=== PATIENT | female | born 1955 | race Caucasian/White ===

== ENCOUNTER 2019-01-05 09:41 | Emergency (ER) | payer MEDICARE, OTHER ==
[~2019-01-05] VITALS: Ht 165.1 cm; Wt 63.5 kg
[~2019-01-05 09:41] MED LIST: CYCL10 PO; HYDACE5 PO; IBUP800 PO
[2019-01-05 10:28] LABS: BASOPHILS ABSOLUTE AUTO 0.04 K/mm3 (0.00-0.23); BASOPHILS PERCENT AUTO 0 % (0-2); EOSINOPHILS ABSOLUTE AUTO 0.02 K/mm3 (0.00-0.68); EOSINOPHILS PERCENT AUTO 0 % (0-6); Hemoglobin 14.3 g/dL (11.5-16.0); IMMATURE GRAN ABSOLUTE AUTO 0.02 K/mm3 (0.00-0.10); IMMATURE GRAN PERCENT AUTO 0 % (0-1); LYMPHOCYTES ABSOLUTE AUTO 1.17 K/mm3 (0.84-5.20); LYMPHOCYTES PERCENT AUTO 12 % (21-46); MONOCYTES ABSOLUTE AUTO 0.79 K/mm3 (0.16-1.47); MONOCYTES PERCENT AUTO 8 % (4-13); Mean Corpuscular HGB Conc 33.3 g/dL (31.5-36.5); Mean Corpuscular Volume 90 fL (80-100); Mean Platelet Volume 9.3 fL (9.1-12.4); NEUTROPHILS ABSOLUTE AUTO 7.56 K/mm3 (1.96-9.15); NEUTROPHILS PERCENT AUTO 79 % (41-73); Platelet Count 288 K/mm3 (150-400); RDW Coefficient Variation 12.7 % (11.7-14.2); RDW Standard Deviation 42.1 fL (35.1-46.3); Red Blood Cell Count 4.76 M/mm3 (3.80-5.20)
[2019-01-05 10:43] LABS: Alanine Aminotransfer (ALT/SGP 17 U/L (12-78); Albumin, Blood 3.3 g/dL (3.4-5.0); Albumin/Globulin Ratio 0.8 (0.8-1.8); Alk Phos 111 U/L (50-136); Anion Gap 4 mmol/L (6-16); Aspartate Aminotrans (AST/SGOT 18 U/L (12-37); Bilirubin, Total 0.9 mg/dL (0.1-1.0); Blood Urea Nitrogen 16 mg/dL (8-24); CO2, Blood 29 mmol/L (21-32); Calcium, Blood 9.1 mg/dL (8.5-10.1); Chloride, Blood 104 mmol/L (98-108); Creatinine, Blood 0.84 mg/dL (0.40-1.00); Globulin, Blood 4.4 g/dL (2.2-4.0); Glomerular Filtration Rate >60 (60-); Glucose, Blood 88 mg/dL (70-99); Potassium, Blood 4.5 mmol/L (3.5-5.5); Sodium, Blood 137 mmol/L (136-145); Total Protein, Blood 7.7 g/dL (6.4-8.2); Troponin I <0.015 ng/mL (0.000-0.040)
[2019-01-05] MEDS ORDERED: VIBRAMYCIN PO (12:11)
== END 2019-01-05 12:37 | disposition home or self-care (01) ==
LOC: ER 09:41
PROVIDERS: Physician Assistant
DX: J18.9 Pneumonia, unspecified organism (principal); Z88.5 Allergy status to narcotic agent
CPT/HCPCS: 36415; 71046; 71260; 80053; 84484; 85025; 93005; 93010; 96365-59; 99284-25; J0696; Q9967

== ENCOUNTER 2019-04-27 12:41 | Emergency (ER) | payer MEDICARE, SELFPAY ==
[~2019-04-27] VITALS: Ht 167.6 cm; Wt 62.6 kg
[~2019-04-27 12:41] MED LIST changes: +VIBRAMYCIN PO
[2019-04-27 13:13] LABS: BASOPHILS ABSOLUTE AUTO 0.06 K/mm3 (0.00-0.23); BASOPHILS PERCENT AUTO 1 % (0-2); EOSINOPHILS ABSOLUTE AUTO 0.07 K/mm3 (0.00-0.68); EOSINOPHILS PERCENT AUTO 1 % (0-6); Hematocrit 43.4 % (33.0-51.0); Hemoglobin 14.3 g/dL (11.5-16.0); IMMATURE GRAN ABSOLUTE AUTO 0.01 K/mm3 (0.00-0.10); IMMATURE GRAN PERCENT AUTO 0 % (0-1); LYMPHOCYTES PERCENT AUTO 28 % (21-46); MONOCYTES ABSOLUTE AUTO 0.85 K/mm3 (0.16-1.47); MONOCYTES PERCENT AUTO 12 % (4-13); Mean Corpuscular HGB 30.1 pg (26.0-34.0); Mean Corpuscular HGB Conc 32.9 g/dL (31.5-36.5); Mean Corpuscular Volume 91 fL (80-100); NEUTROPHILS ABSOLUTE AUTO 3.94 K/mm3 (1.96-9.15); NEUTROPHILS PERCENT AUTO 58 % (41-73); Platelet Count 237 K/mm3 (150-400); RDW Coefficient Variation 13.7 % (11.7-14.2); RDW Standard Deviation 46.5 fL (35.1-46.3); Red Blood Cell Count 4.75 M/mm3 (3.80-5.20); White Blood Cell Count 6.83 K/mm3 (4.00-11.30)
[2019-04-27 13:39] LABS: Alanine Aminotransfer (ALT/SGP 18 U/L (12-78); Albumin, Blood 3.6 g/dL (3.4-5.0); Albumin/Globulin Ratio 0.8 (0.8-1.8); Alk Phos 82 U/L (50-136); Anion Gap 6 mmol/L (6-16); Aspartate Aminotrans (AST/SGOT 10 U/L (12-37); Bilirubin, Total 0.7 mg/dL (0.1-1.0); Blood Urea Nitrogen 19 mg/dL (8-24); Bun/Creatinine Ratio 30.5 (12.0-20.0); CO2, Blood 27 mmol/L (21-32); Calcium, Blood 9.1 mg/dL (8.5-10.1); Chloride, Blood 110 mmol/L (98-108); Creatinine, Blood 0.62 mg/dL (0.40-1.00); Globulin, Blood 4.3 g/dL (2.2-4.0); Glomerular Filtration Rate >60 (60-); Glucose, Blood 87 mg/dL (70-99); Potassium, Blood 4.2 mmol/L (3.5-5.5); Sodium, Blood 143 mmol/L (136-145); Total Protein, Blood 7.9 g/dL (6.4-8.2); Troponin I <0.015 ng/mL (0.000-0.040)
== END 2019-04-27 14:54 | disposition home or self-care (01) ==
LOC: ER 12:41
PROVIDERS: Physician Assistant
DX: R09.1 Pleurisy (principal); Z88.5 Allergy status to narcotic agent
CPT/HCPCS: 36415; 71046; 80053; 84484; 85025; 85379; 93005; 93010; 99284-25

== ENCOUNTER 2020-01-26 08:46 | Observation (INO) | payer OTHER ==
[~2020-01-26] VITALS: Ht 167.6 cm; Wt 53.0 kg
[2020-01-26 09:46] LABS: BASOPHILS ABSOLUTE AUTO 0.07 K/mm3 (0.00-0.23); BASOPHILS PERCENT AUTO 1 % (0-2); EOSINOPHILS ABSOLUTE AUTO 0.06 K/mm3 (0.00-0.68); EOSINOPHILS PERCENT AUTO 1 % (0-6); Hematocrit 44.6 % (33.0-51.0); IMMATURE GRAN ABSOLUTE AUTO 0.03 K/mm3 (0.00-0.10); IMMATURE GRAN PERCENT AUTO 0 % (0-1); LYMPHOCYTES ABSOLUTE AUTO 1.14 K/mm3 (0.84-5.20); LYMPHOCYTES PERCENT AUTO 13 % (21-46); MONOCYTES ABSOLUTE AUTO 0.64 K/mm3 (0.16-1.47); MONOCYTES PERCENT AUTO 7 % (4-13); Mean Corpuscular HGB 29.4 pg (26.0-34.0); Mean Corpuscular HGB Conc 31.4 g/dL (31.5-36.5); Mean Corpuscular Volume 94 fL (80-100); Mean Platelet Volume 9.5 fL (9.1-12.4); NEUTROPHILS PERCENT AUTO 78 % (41-73); Platelet Count 297 K/mm3 (150-400); RDW Standard Deviation 44.6 fL (35.1-46.3); Red Blood Cell Count 4.77 M/mm3 (3.80-5.20); White Blood Cell Count 8.64 K/mm3 (4.00-11.30)
[2020-01-26 10:06] LABS: Alanine Aminotransfer (ALT/SGP 32 U/L (12-78); Albumin, Blood 3.6 g/dL (3.4-5.0); Albumin/Globulin Ratio 0.9 (0.8-1.8); Alk Phos 92 U/L (50-136); Anion Gap 7 mmol/L (6-16); Aspartate Aminotrans (AST/SGOT 45 U/L (12-37); Bilirubin, Total 0.8 mg/dL (0.1-1.0); Blood Urea Nitrogen 22 mg/dL (8-24); Bun/Creatinine Ratio 28.1 (12.0-20.0); CO2, Blood 27 mmol/L (21-32); Calcium, Blood 9.4 mg/dL (8.5-10.1); Chloride, Blood 107 mmol/L (98-108); Creatinine, Blood 0.78 mg/dL (0.40-1.00); Globulin, Blood 4.1 g/dL (2.2-4.0); Glomerular Filtration Rate >60 (60-); Glucose, Blood 125 mg/dL (70-99); Potassium, Blood 3.8 mmol/L (3.5-5.5); Sodium, Blood 141 mmol/L (136-145); Total Protein, Blood 7.7 g/dL (6.4-8.2)
[2020-01-26 10:15] LABS: Troponin I 0.456 ng/mL (0.000-0.040)
[2020-01-26 11:21] LABS: International Normalized Ratio 1.04; Prothrombin Time Results 11.1 Sec (9.7-11.5)
--- NOTE | 2020-01-26 13:45 | NUR ---
ADMISSION ASSESMENT COMPLETE. PT LYING IN BED VISITING WITH SISTER. BED IN LOWEST POSITION, RAILS UP, CALL LIGHT WITHIN REACH.
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
[2020-01-26 16:46] LABS: Creatine Kinase MB 30.5 ng/mL (0.0-3.6); Creatine Kinase MB Index 12.1 (0.0-4.0)
[2020-01-26 16:48] LABS: Troponin I 3.83 ng/mL (0.000-0.040)
--- NOTE | 2020-01-26 18:25 | NUR ---
SHIFT SUMMARY TROPONIN LAB VALUE CRTICAL AT 3.83. DR MCKENNA NOTIFIED. DUE TO AN INABILITY TO SAFELY SWALLOW THE NECESSARY PO MEDS THE PT IS UNABLE TO GO TO THE HEALTH SOCIAL WORK PROFESSOR. PT CURRENTLY RESTING IN BED WITH A HEPARIN DRIP.
--- NOTE | 2020-01-26 20:12 | NUR ---
CARE ASSUMED REPORT RECEIVED, CARE ASSUMED AT 1900 FROM MEMO GRESHAM. PT SITTING UP IN BED, DECLINES PAIN, DISCOMFORT OR NEEDS. COMMUNICATES NONVERBALLY, WRITING ON NOTEPAD, USING FACIAL EXPRESSIONS AND HAND MOTIONS. VITALS STABLE. PT AGREEABLE TO USE CALL LIGHT FOR NEEDS. REPORT GIVEN TO MEMO RICHTER TO ASSUME CARE AT THIS TIME.
--- NOTE | 2020-01-26 21:20 | NUR ---
t coughing and having difficulty with secretions feeling to full to cough up. Review positioning to facilitae drool. pt cannot thanh left lateral due to nostril plugging up. suggest scopolmine patch. pt also distraugh because no contact with neurologist. will update hosptilist.
[2020-01-27 00:48] LABS: Creatine Kinase MB 21.9 ng/mL (0.0-3.6); Creatine Kinase MB Index 10.3 (0.0-4.0)
[2020-01-27 00:55] LABS: Troponin I 3.26 ng/mL (0.000-0.040)
--- NOTE | 2020-01-27 05:35 | NUR ---
SHIFT SUMMARY ASSUMED CARE OF PT AT 1900. PT IS A/OX4, DENIES N/T IN EXTREMIES, PT CANNOT SPEAK DUE TO PSEUDOBULBAR PALSY, SHE WRITES ON PAPER TO RESPOND. HEART SOUNDS REGULAR, TELE SHOWS SINUS WITH BBB AND PAC @ 67, DENIES CP AT THIS TIME. HEPRIN DRIP CHANGED FROM 13UNITS/HR TO 15UNITS/HR. LUNG SOUNDS DIMINISHED, DENIES SOB. AT AROUND 0900 PT CHOKED ON HER SALIVA, PALLITIVE CARE NURSE SUGGESTED SCOPOLAMINE PATCH, NOTIFIED HOSPITAL WHO STATED IT COULD HAVE SIDE EFFECTS AND FOR THIS TO BE EVALUATED BY DAYSHIFT DOCTOR. NO ACUTE EVENTS DURING THE NIGHT. PT SLEPT MOST OF THE NIGHT. CALL LIGHT IN REACH, BED IN LOWEST POSTION, WILL CONTINUE TO MONITOR UNTIL DAYSHIFT NURSE ARRIVES.
[2020-01-27 08:35] LABS: Creatine Kinase MB 16.8 ng/mL (0.0-3.6); Creatine Kinase MB Index 9.4 (0.0-4.0)
[2020-01-27 08:52] LABS: Troponin I 2.52 ng/mL (0.000-0.040)
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
[2020-01-27] MEDS ORDERED: ASPI300S PR (12:12)
[2020-01-27] MEDS ORDERED: NITR.4SL SL (12:12)
[2020-01-27] MEDS ORDERED: Transderm-Scop1 EACH TD (12:13)
--- NOTE | 2020-01-27 13:31 | NUR ---
PCU DISCHARGE SUMMARY PATIENT AMBULATED TO WHEELCHAIR WITH STEADY GAIT AND LEFT UNIT VIA WHEELCHAIR HOME WITH SISTER. PATIENT UNDERSTOOD NEW MEDICATIONS, FOLLOW UP APPTS AND DISCHARGE INSTRUCTIONS. SISTER ALSO VERBALZIED INSTRUCTIONS OUT IN PARKING LOT. PATIENT LEFT IN NO ACUTE DISTRESS ON ROOM AIR. BELONGS SENT WITH PT.
== END 2020-01-27 13:15 | disposition home or self-care (01) ==
LOC: ER 08:46 → PCU 08:48 → ER 10:55 → PCU 10:55
PROVIDERS: Pharmacist; Physician Assistant; ADMIT Internal Medicine
DX: I21.4 Non-ST elevation (NSTEMI) myocardial infarction (principal); Z88.5 Allergy status to narcotic agent; G12.29 Other motor neuron disease
CPT/HCPCS: 36415; 71045; 80053; 82550; 82553; 84484; 85025; 85610; 85730; 93005; 93010; 96365; 96366; 96375; 96376; 99285-25; G0378; J1644; J2930

== ENCOUNTER 2020-01-30 00:02 | Emergency (ER) | payer OTHER ==
[~2020-01-30] VITALS: Ht 167.6 cm; Wt 54.4 kg
[~2020-01-30 00:02] MED LIST changes: +ASPI300S PR; +NITR.4SL SL; +Transderm-Scop1 EACH TD
[2020-01-30 00:32] LABS: BASOPHILS ABSOLUTE AUTO 0.04 K/mm3 (0.00-0.23); BASOPHILS PERCENT AUTO 0 % (0-2); EOSINOPHILS ABSOLUTE AUTO 0.01 K/mm3 (0.00-0.68); EOSINOPHILS PERCENT AUTO 0 % (0-6); Hematocrit 41.7 % (33.0-51.0); Hemoglobin 13.3 g/dL (11.5-16.0); IMMATURE GRAN ABSOLUTE AUTO 0.03 K/mm3 (0.00-0.10); IMMATURE GRAN PERCENT AUTO 0 % (0-1); LYMPHOCYTES ABSOLUTE AUTO 1.61 K/mm3 (0.84-5.20); LYMPHOCYTES PERCENT AUTO 13 % (21-46); MONOCYTES ABSOLUTE AUTO 1.02 K/mm3 (0.16-1.47); MONOCYTES PERCENT AUTO 8 % (4-13); Mean Corpuscular HGB 29.4 pg (26.0-34.0); Mean Corpuscular HGB Conc 31.9 g/dL (31.5-36.5); Mean Corpuscular Volume 92 fL (80-100); Mean Platelet Volume 9.7 fL (9.1-12.4); NEUTROPHILS ABSOLUTE AUTO 9.73 K/mm3 (1.96-9.15); NEUTROPHILS PERCENT AUTO 78 % (41-73); Platelet Count 285 K/mm3 (150-400); RDW Standard Deviation 44.2 fL (35.1-46.3); Red Blood Cell Count 4.53 M/mm3 (3.80-5.20); White Blood Cell Count 12.44 K/mm3 (4.00-11.30)
[2020-01-30 00:51] LABS: Alanine Aminotransfer (ALT/SGP 25 U/L (12-78); Albumin, Blood 3.4 g/dL (3.4-5.0); Albumin/Globulin Ratio 0.8 (0.8-1.8); Alk Phos 82 U/L (50-136); Anion Gap 8 mmol/L (6-16); Aspartate Aminotrans (AST/SGOT 21 U/L (12-37); Bilirubin, Total 1.6 mg/dL (0.1-1.0); Blood Urea Nitrogen 21 mg/dL (8-24); CO2, Blood 24 mmol/L (21-32); Chloride, Blood 107 mmol/L (98-108); Creatinine, Blood 0.66 mg/dL (0.40-1.00); Globulin, Blood 4.4 g/dL (2.2-4.0); Glomerular Filtration Rate >60 (60-); Glucose, Blood 102 mg/dL (70-99); Potassium, Blood 3.7 mmol/L (3.5-5.5); Sodium, Blood 139 mmol/L (136-145); Total Protein, Blood 7.8 g/dL (6.4-8.2); Troponin I 0.313 ng/mL (0.000-0.040)
[2020-01-30] MEDS ORDERED: Feverall650 MG PR (01:18)
== END 2020-01-30 01:24 | disposition home or self-care (01) ==
LOC: ER 00:02
PROVIDERS: Physician Assistant
DX: R07.89 Other chest pain (principal)
CPT/HCPCS: 36415; 71045; 80053; 84484; 85025; 93005; 93010; 99285-25

== ENCOUNTER 2020-02-19 13:32 | Emergency (ER) | payer OTHER ==
[~2020-02-19] VITALS: Ht 167.6 cm; Wt 59.0 kg
[~2020-02-19 13:32] MED LIST changes: +Feverall650 MG PR; +Miralax17 GM PO
[2020-02-19] MEDS ORDERED: DIBU30TO TOP (15:59)
== END 2020-02-19 16:22 | disposition home or self-care (01) ==
LOC: ER 13:32
DX: K64.9 Unspecified hemorrhoids (principal); Z88.5 Allergy status to narcotic agent; Z79.899 Other long term (current) drug therapy
CPT/HCPCS: 74018; 99283-25

== ENCOUNTER 2020-03-27 09:58 | Day surgery (SDC) | payer OTHER ==
[~2020-03-27] VITALS: Ht 193 cm; Wt 50.4 kg
[~2020-03-27 09:58] MED LIST changes: +DIBU30TO TOP
[2020-03-27] MEDS ORDERED: FIBER THERAPY625 MG PO (10:53)
[2020-03-27] MEDS ORDERED: B-12500 MC2 PO (10:54)
--- NOTE | 2020-03-27 15:55 | NUR ---
PT TO RECOVERY ROOM POST PROCEDURE. PT IS DROWSY, BUT ROUSABLE TO VERBAL STIMULI. PT IS ABLE TO MAKE NEEDS KNOWN THROUGH GESTURES AND WRITTING NOTES. PT DENIES DISCOMFORT POST PROCEDURE. MONITOR SR 60'S, B/P 117/565, AFEBRILE. SPO2 93-94% RA. ABD LUQ PEG TUBE IN PLACE, NO SWELLING/HEMATOMA AT SITE, GAUZE AND TEGADERM DRSG INTACT.
--- NOTE | 2020-03-27 16:50 | NUR ---
DR AREVALO TALKED WITH PT AND SON. DR AREVALO WILL CALL SON TOMORROW WITH INSTRUCTIONS FOR USING G TUBE AFTER DISCUSSING WITH PT'S PCP.
--- NOTE | 2020-03-27 17:20 | NUR ---
PT DRESSED SELF WITHOUT ANY ISSUES, SITE UNCHANGED; IV REMOVED-CANNULA INTACT.
--- NOTE | 2020-03-27 17:30 | NUR ---
PT AND SON RECEIVED DISCHARGE INSTRUCTIONS, MED LIST AND AFTER CARE INSTRUCTIONS; VERBALIZED GOOD UNDERSTANDING. REITERATED AGAIN NOT TO USE G TUBE UNTIL RECEIVING FURTHER INSTRUCTION FROM DR AREVALO OR PCP. PT LEFT FACILITY VIA W/C, CONDITION STABLE.
== END 2020-03-27 17:30 | disposition home or self-care (01) ==
LOC: MHTC 09:58
DX: G12.22 Progressive bulbar palsy (principal); I25.10 Atherosclerotic heart disease of native coronary artery without angina pectoris; I25.2 Old myocardial infarction; Z79.82 Long term (current) use of aspirin; Z88.8 Allergy status to other drugs, medicaments and biological substances; Z88.5 Allergy status to narcotic agent
CPT/HCPCS: 49440; 99152; 99153; C1769; J2250; J3010; J7030; Q9967

== ENCOUNTER 2020-05-06 16:14 | Emergency (ER) | payer OTHER ==
[~2020-05-06] VITALS: Ht 167.6 cm; Wt 56.7 kg
[~2020-05-06 16:14] MED LIST changes: +B-12500 MC2 PO; +FIBER THERAPY625 MG PO
[2020-05-06 16:51] LABS: BASOPHILS ABSOLUTE AUTO 0.07 K/mm3 (0.00-0.23); BASOPHILS PERCENT AUTO 1 % (0-2); EOSINOPHILS ABSOLUTE AUTO 0.03 K/mm3 (0.00-0.68); EOSINOPHILS PERCENT AUTO 0 % (0-6); Hematocrit 44.7 % (33.0-51.0); IMMATURE GRAN ABSOLUTE AUTO 0.02 K/mm3 (0.00-0.10); IMMATURE GRAN PERCENT AUTO 0 % (0-1); LYMPHOCYTES ABSOLUTE AUTO 1.72 K/mm3 (0.84-5.20); LYMPHOCYTES PERCENT AUTO 18 % (21-46); MONOCYTES ABSOLUTE AUTO 0.64 K/mm3 (0.16-1.47); MONOCYTES PERCENT AUTO 7 % (4-13); Mean Corpuscular HGB 29.1 pg (26.0-34.0); Mean Corpuscular HGB Conc 31.3 g/dL (31.5-36.5); Mean Corpuscular Volume 93 fL (80-100); NEUTROPHILS ABSOLUTE AUTO 7.17 K/mm3 (1.96-9.15); NEUTROPHILS PERCENT AUTO 74 % (41-73); Platelet Count 392 K/mm3 (150-400); RDW Coefficient Variation 15.7 % (11.7-14.2); RDW Standard Deviation 53.5 fL (35.1-46.3); Red Blood Cell Count 4.81 M/mm3 (3.80-5.20); White Blood Cell Count 9.65 K/mm3 (4.00-11.30)
[2020-05-06 17:12] LABS: Alanine Aminotransfer (ALT/SGP 24 U/L (12-78); Albumin, Blood 3.5 g/dL (3.4-5.0); Albumin/Globulin Ratio 0.7 (0.8-1.8); Alk Phos 91 U/L (50-136); Anion Gap 6 mmol/L (6-16); Aspartate Aminotrans (AST/SGOT 18 U/L (12-37); Bilirubin, Total 0.4 mg/dL (0.1-1.0); Blood Urea Nitrogen 20 mg/dL (8-24); Bun/Creatinine Ratio 43.4 (12.0-20.0); CO2, Blood 27 mmol/L (21-32); Calcium, Blood 9.4 mg/dL (8.5-10.1); Chloride, Blood 108 mmol/L (98-108); Creatinine, Blood 0.46 mg/dL (0.40-1.00); Globulin, Blood 4.8 g/dL (2.2-4.0); Glomerular Filtration Rate >60 (60-); Glucose, Blood 143 mg/dL (70-99); Potassium, Blood 3.6 mmol/L (3.5-5.5); Sodium, Blood 141 mmol/L (136-145); Total Protein, Blood 8.3 g/dL (6.4-8.2); Troponin I <0.015 ng/mL (0.000-0.040)
[2020-05-06] MEDS ORDERED: ONDA4ODT MM (19:08)
== END 2020-05-06 20:13 | disposition home or self-care (01) ==
LOC: ER 16:14
PROVIDERS: Physician Assistant
DX: R09.82 Postnasal drip (principal); R11.2 Nausea with vomiting, unspecified; S16.1XXA Strain of muscle, fascia and tendon at neck level, initial encounter; R06.02 Shortness of breath; G12.21 Amyotrophic lateral sclerosis; I25.2 Old myocardial infarction; Z88.5 Allergy status to narcotic agent; Z79.82 Long term (current) use of aspirin; Z79.899 Other long term (current) drug therapy; X58.XXXA Exposure to other specified factors, initial encounter
CPT/HCPCS: 36415; 70450; 71046; 72125; 80053; 84484; 85025; 93005; 93010; 96374; 96375; 99284-25; A9270-GY; J1885; J2405

== ENCOUNTER 2020-07-11 13:52 | Day surgery (SDC) | payer OTHER ==
[~2020-07-11] VITALS: Ht 162.6 cm; Wt 58.0 kg
[~2020-07-11 13:52] MED LIST changes: +ONDA4ODT MM; +VITAMIN B PO; +[UNRECOGNIZED DRUG - OTHER] PO
--- NOTE | 2020-07-11 15:50 | NUR ---
PATIENT RETURNED TO RECOVERY ROOM A&O.
--- NOTE | 2020-07-11 15:52 | NUR ---
6 PERSIAN SHEATH REMOVED FROM BRACHIAL VEIN WITH CATHETER INTACT AND MANUAL PRESSURE HELD BY VALERY SHEPHERD. RAE DRESSING IN PLACE.
--- NOTE | 2020-07-11 16:03 | NUR ---
RIGHT BRACHIAL SITE SOFT AND NONTENDER OPSITE DRESSING APPLIED OVER RAE.
--- NOTE | 2020-07-11 17:01 | NUR ---
PATIENT RETURNED TO RECOVERY ROOM A&O. G TUBE SITE SOFT AND NONTENDER. NO DRAINAGE.
--- NOTE | 2020-07-11 18:10 | NUR ---
PATIENT DISCHARGED HOME. A&O. VERBALIZED UNDERSTANDING OF DISCHARGE INSTRUCTIONS. G-TUBE SITE CLEAN AND DRY. IV SITE DCED BY SAM HAMPTON. PATIENT DSCHARGED HOME IN THE CARE OF HER SON. TAKEN TO HIS CAR VIA WHEELCHAIR BY ME.
== END 2020-07-11 23:20 | disposition home or self-care (01) ==
LOC: MHTC 13:52
DX: Z43.1 Encounter for attention to gastrostomy (principal); G12.29 Other motor neuron disease; G12.21 Amyotrophic lateral sclerosis; Z88.8 Allergy status to other drugs, medicaments and biological substances; Z88.5 Allergy status to narcotic agent
CPT/HCPCS: 49450; 99152; C1769; J2250; J3010; J7040; Q9967

== ENCOUNTER 2020-08-02 13:56 | Emergency (ER) | payer OTHER ==
[~2020-08-02] VITALS: Ht 160 cm; Wt 54.4 kg
== END 2020-08-02 19:10 | disposition home or self-care (01) ==
LOC: ER 13:56
DX: K94.23 Gastrostomy malfunction (principal); G12.21 Amyotrophic lateral sclerosis; Z79.82 Long term (current) use of aspirin; Z88.5 Allergy status to narcotic agent; Z79.899 Other long term (current) drug therapy
CPT/HCPCS: 43762; 49465; 99282-25; Q9963

== ENCOUNTER 2020-08-26 00:14 | Emergency (ER) | payer OTHER ==
[~2020-08-26] VITALS: Ht 167.6 cm; Wt 54.4 kg
[2020-08-26] MEDS ORDERED: ATROPINE SULFATE5 ML SL (02:04)
== END 2020-08-26 03:04 | disposition home or self-care (01) ==
LOC: ER 00:14
DX: R09.89 Other specified symptoms and signs involving the circulatory and respiratory systems (principal); R06.02 Shortness of breath; Z88.5 Allergy status to narcotic agent; Z79.82 Long term (current) use of aspirin; Z79.899 Other long term (current) drug therapy
CPT/HCPCS: 71046; 99283-25

== ENCOUNTER 2020-10-09 03:21 | Emergency (ER) | payer OTHER ==
[~2020-10-09] VITALS: Ht 167.6 cm; Wt 55.3 kg
[~2020-10-09 03:21] MED LIST changes: +ATROPINE SULFATE5 ML SL
[2020-10-09 06:48] LABS: BASOPHILS ABSOLUTE AUTO 0.05 K/mm3 (0.00-0.23); BASOPHILS PERCENT AUTO 0 % (0-2); EOSINOPHILS ABSOLUTE AUTO 0.03 K/mm3 (0.00-0.68); EOSINOPHILS PERCENT AUTO 0 % (0-6); Hematocrit 44.1 % (33.0-51.0); Hemoglobin 13.8 g/dL (11.5-16.0); IMMATURE GRAN ABSOLUTE AUTO 0.04 K/mm3 (0.00-0.10); IMMATURE GRAN PERCENT AUTO 0 % (0-1); LYMPHOCYTES ABSOLUTE AUTO 1.27 K/mm3 (0.84-5.20); LYMPHOCYTES PERCENT AUTO 10 % (21-46); MONOCYTES ABSOLUTE AUTO 0.84 K/mm3 (0.16-1.47); MONOCYTES PERCENT AUTO 7 % (4-13); Mean Corpuscular HGB 30.1 pg (26.0-34.0); Mean Corpuscular HGB Conc 31.3 g/dL (31.5-36.5); Mean Corpuscular Volume 96 fL (80-100); Mean Platelet Volume 9.8 fL (9.1-12.4); NEUTROPHILS ABSOLUTE AUTO 10.28 K/mm3 (1.96-9.15); NEUTROPHILS PERCENT AUTO 82 % (41-73); Platelet Count 304 K/mm3 (150-400); RDW Coefficient Variation 13.6 % (11.7-14.2); RDW Standard Deviation 48.4 fL (35.1-46.3); Red Blood Cell Count 4.59 M/mm3 (3.80-5.20); White Blood Cell Count 12.51 K/mm3 (4.00-11.30)
[2020-10-09 07:08] LABS: Alanine Aminotransfer (ALT/SGP 25 U/L (12-78); Albumin, Blood 3.5 g/dL (3.4-5.0); Albumin/Globulin Ratio 0.8 (0.8-1.8); Alk Phos 84 U/L (50-136); Anion Gap 5 mmol/L (6-16); Aspartate Aminotrans (AST/SGOT 15 U/L (12-37); Bilirubin, Total 0.5 mg/dL (0.1-1.0); Blood Urea Nitrogen 19 mg/dL (8-24); Bun/Creatinine Ratio 40.1 (12.0-20.0); CO2, Blood 29 mmol/L (21-32); Calcium, Blood 9.7 mg/dL (8.5-10.1); Chloride, Blood 106 mmol/L (98-108); Creatinine, Blood 0.47 mg/dL (0.40-1.00); Globulin, Blood 4.4 g/dL (2.2-4.0); Glomerular Filtration Rate >60 (60-); Glucose, Blood 93 mg/dL (70-99); Potassium, Blood 4.2 mmol/L (3.5-5.5); Sodium, Blood 140 mmol/L (136-145); Total Protein, Blood 7.9 g/dL (6.4-8.2); Troponin I <0.015 ng/mL (0.000-0.040)
[2020-10-09 10:49] LABS: Influenza A, PCR NEGATIVE (NEGATIVE); Influenza B, PCR NEGATIVE (NEGATIVE); Resp Syncytial Virus, PCR NEGATIVE (NEGATIVE); SARS-Cov-2 (COVID-19) PCR, MMC NEGATIVE (NEGATIVE)
[2020-10-09] MEDS ORDERED: CARV3.125 PO (11:22)
[2020-10-09] MEDS ORDERED: LOSA25 PO (11:22)
[2020-10-09] MEDS ORDERED: ASPI81CH PO (11:22)
== END 2020-10-09 11:56 | disposition home or self-care (01) ==
LOC: ER 03:21
PROVIDERS: Emergency Medicine
DX: I42.9 Cardiomyopathy, unspecified (principal); Z86.2 Personal history of diseases of the blood and blood-forming organs and certain disorders involving the immune mechanism; Z88.5 Allergy status to narcotic agent; Z20.822 Contact with and (suspected) exposure to COVID-19
CPT/HCPCS: 0241U; 36415; 71045; 80053; 83880; 84145; 84484; 85025; 93005; 93010; 99284-25; A9270

== ENCOUNTER 2020-12-11 23:26 | Emergency (ER) | payer OTHER ==
[~2020-12-11] VITALS: Ht 170.2 cm; Wt 59.0 kg
== END 2020-12-12 02:10 | disposition home or self-care (01) ==
LOC: ER 23:26
DX: R06.02 Shortness of breath (principal)
CPT/HCPCS: 31720; 36415; 71045; 80053; 84484; 85025; 93005; 93010; 96374; 99284; J7030

== ENCOUNTER 2021-01-26 12:47 | Observation (INO) | payer OTHER ==
[~2021-01-26] VITALS: Ht 154.9 cm; Wt 56.7 kg
[~2021-01-26 12:47] MED LIST changes: +ASPI81CH PO; +CARV3.125 PO; +LOSA25 PO
[2021-01-26 13:20] LABS: Calcium, Ionized (POC) 1.25 mmol/L (1.10-1.46); Chloride (POC) 99 mmol/L (98-108); Creatinine (POC) 0.5 mg/dL (0.6-1.0); Glucose (ISTAT POC) 132 mg/dL (70-99); Hemoglobin (POC) 15.6 g/dL (12.0-16.0); Potassium (POC) 3.6 mmol/L (3.5-5.5); Sodium (POC) 141 mmol/L (135-148); Total CO2 (POC) 33 mmol/L (21-32)
[2021-01-26 13:25] LABS: BASOPHILS ABSOLUTE AUTO 0.09 K/mm3 (0.00-0.23); BASOPHILS PERCENT AUTO 0 % (0-2); EOSINOPHILS PERCENT AUTO 0 % (0-6); Hemoglobin 14.1 g/dL (11.5-16.0); IMMATURE GRAN ABSOLUTE AUTO 0.19 K/mm3 (0.00-0.10); IMMATURE GRAN PERCENT AUTO 1 % (0-1); LYMPHOCYTES ABSOLUTE AUTO 0.68 K/mm3 (0.84-5.20); LYMPHOCYTES PERCENT AUTO 2 % (21-46); MONOCYTES ABSOLUTE AUTO 1.62 K/mm3 (0.16-1.47); MONOCYTES PERCENT AUTO 6 % (4-13); Mean Corpuscular HGB 29.6 pg (26.0-34.0); Mean Corpuscular HGB Conc 31.3 g/dL (31.5-36.5); Mean Corpuscular Volume 94 fL (80-100); Mean Platelet Volume 9.4 fL (9.1-12.4); NEUTROPHILS ABSOLUTE AUTO 25.51 K/mm3 (1.96-9.15); NEUTROPHILS PERCENT AUTO 91 % (41-73); Platelet Count 470 K/mm3 (150-400); RDW Coefficient Variation 13.9 % (11.7-14.2); RDW Standard Deviation 48.8 fL (35.1-46.3); Red Blood Cell Count 4.77 M/mm3 (3.80-5.20); White Blood Cell Count 28.09 K/mm3 (4.00-11.30)
[2021-01-26 13:43] LABS: Alanine Aminotransfer (ALT/SGP 32 U/L (12-78); Albumin/Globulin Ratio 0.6 (0.8-1.8); Alk Phos 105 U/L (50-136); Anion Gap 6 mmol/L (6-16); Aspartate Aminotrans (AST/SGOT 18 U/L (12-37); Bilirubin, Total 0.8 mg/dL (0.1-1.0); Blood Urea Nitrogen 16 mg/dL (8-24); Bun/Creatinine Ratio 29.1 (12.0-20.0); CO2, Blood 32 mmol/L (21-32); Calcium, Blood 9.7 mg/dL (8.5-10.1); Chloride, Blood 101 mmol/L (98-108); Creatinine, Blood 0.55 mg/dL (0.40-1.00); Globulin, Blood 5.1 g/dL (2.2-4.0); Glomerular Filtration Rate >60 (60-); Glucose, Blood 135 mg/dL (70-99); Potassium, Blood 3.5 mmol/L (3.5-5.5); Sodium, Blood 139 mmol/L (136-145); Total Protein, Blood 8.1 g/dL (6.4-8.2)
--- NOTE | 2021-01-26 14:32 | NUR ---
ED Palliative Care Consult Spoke with Dr Mckeon and discussed case. Pt to the ED with Syncope. Pt's medical history and comorbidities include: NSTEMI, ALS, Dysphagia, Verigo, and Pseudobulbar Palsy. Pt and family would like to pursue comfort care. Pt resting on gurny upon arrival and is wearing oxygen via non rebreather. Son Sky and Pt's daughter in law Palmer at bedside. Engaged in therapeutic discussion regarding goals of care. Pt able to respond to questions using her thumb. Thumbs up means yes, thumbs down means no. Educated on comfort care philosophy with V/U made by meme Swanson and thumbs up by Pt. Pt and family would like to pursue comfort measures only. Discuss the potential of D/C home with hospice pending condition on Thursday with Pt and family in agreement. Pt requesting electrical wirer. Provided copy of durable power of attorny from [facility] website per Pt and family's request. Instructed that staff will not be able to educate or advise on completion of form. Instructed that [facility] will not be available until Thursday. Family expresses appreciation of visit. Spoke with primary ED RN Natalie and discussed case. Spoke with Plant Tech Chandana and relayed request for electrical wirer. Chandana will call addiction counselor electrical wirer. Spoke with admitting hospitalist Dr Pugh and discussed case. Dr Pugh will place admitting orders and comfort care orders. Palliative Care will remain available for symptom management and supportive visits.
--- NOTE | 2021-01-26 17:12 | NUR ---
Pt resting in bed with family at bedside. Pt having her DPOA notarized by bernie. Pt reports still having dyspnea by shaking her head up and down when asked about SOB. Discussed Morphine and Ativan for comfort with Pt in agreement. Spoke with Bedside RN Vinicius, discussed case, and reviewed comfort medications. Relayed Pt's request for Ativan and Morphine. Palliative Care will remain available.
--- NOTE | 2021-01-26 17:21 | NUR ---
CC ASSESSMENT: MEDICATED FOR AIR HUNGER & ANXIETY PER EMAR. SCOPOLAMINE TOP IN PLACE BEHIND L EAR; NO SECRETIONS AT THIS TIME. O2 @ 10L VIA NON-REBREATHER MASK. FAMILY IN ROOM. WCTM.
--- NOTE | 2021-01-26 19:26 | NUR ---
CC ASSESSMENT: PT IN NO APPARENT DISTRESS. O2 @ 10L. FAMILY IN ROOM. WCTM.
--- NOTE | 2021-01-26 19:27 | NUR ---
SHIFT SUMMARY: PATIENT ADMIT FROM ED THIS SHIFT. COMFORT CARE MEASURES IN PLACE. MEDICATED FOR AIR HUNGER & ANXIETY PER EMAR. SCOPOLAMINE TOP IN PLACE BEHIND L EAR. FAMILY IN ROOM. COMFORT CARE CART IN ROOM. REPORT GIVEN TO ONCOMING RN.
--- NOTE | 2021-01-27 05:34 | NUR ---
SHIFT SUMMARY PATIENT WAS NOT ALERT OVERNIGHT. SHE DID NOT APPEAR TO BE IN DISTRESS. NO SIGNS OF PAIN OR AIR HUNGER WERE NOTED. PATIENT REMAINS ON 10 LITERS O2 VIA NONREBREATHER MASK. IV PATENT AND FLUSHED. BED IN LOWEST POSITION WITH WHEELS LOCKED AND ALARM ON. CALL LIGHT WITHIN REACH. REPORT GIVEN TO ONCOMING RN.
--- NOTE | 2021-01-27 08:45 | NUR ---
CC ASSESSMENT: PT IN NO APPARENT DISTRESS. NO DYSPNEA/SOB/SECRETIONS; SCOPOLAMINE TOP IN PLACE BEHIND L EAR. NO FAMILY PRESENT. WCTM.
--- NOTE | 2021-01-27 09:44 | NUR ---
Pt resting in bed with her eyes closed upon arrival. Pt does not respond to gentle touch or verbal stimuli. Pt appears comfortable with no S/S of distress at this time. Offered gentle voice with re-assurance. Spoke with Bedside RN Vinicius and discussed case. Called and spoke with Pt's son Sky. Reported Pt's change in condition. Andrei reports plan to be to the hospital soon. Palliative Care will remain available.
--- NOTE | 2021-01-27 10:55 | NUR ---
CC ASSESSMENT: PT IN NO APPARENT DISTRESS. NO DYSPNEA/SOB/SECRETIONS. FAMILY PRESENT. WCTM.
--- NOTE | 2021-01-27 12:13 | NUR ---
CC ASSESSMENT: MEDICATED FOR PAIN PER EMAR. NO DYSPNEA/SOB/SECRETIONS. FAMILY IN ROOM. WCTM.
--- NOTE | 2021-01-27 15:36 | NUR ---
CC ASSESSMENT: PT IN NO APPARENT DISTRESS. NO SOB/SECRETIONS. FAMILY PRESENT IN ROOM. WCTM.
--- NOTE | 2021-01-27 16:45 | NUR ---
CC ASSESSMEMNT: PT IN NO APPARENT DISTRESS. NO SOB/SECRETIONS; O2 @ 10L VIA NON-REBREATHER MASK; SCOPOLAMINE TOP IN PLACE BEHIND L EAR. FAMILY IN ROOM. WCTM.
--- NOTE | 2021-01-27 17:49 | NUR ---
SHIFT SUMMARY: NO ACUTE CHANGES TO REPORT THIS SHIFT. PT REMAINS ON COMFORT CARE. MEDICATED FOR PAIN & ANXIETY PER EMAR. O2 @ 10L VIA NON-REBREATHER MASK. FAMILY IN ROOM T/O SHIFT. WCTM.
--- NOTE | 2021-01-28 00:46 | NUR ---
PATIENT AT 0038
--- NOTE | 2021-01-28 01:11 | NUR ---
DR STOCTKON NOTIFIED OF PATIENT'S AT 0105.
--- NOTE | 2021-01-28 03:34 | NUR ---
PT REMOVED BY [employer]SP[employer] DRIVER FROM [facility] AT [phone]
== END 2021-01-28 00:30 ==
LOC: ER 12:47 → MEDS 12:48
PROVIDERS: Emergency Medicine; Physician Assistant; ADMIT Hospitalist
DX: G12.21 Amyotrophic lateral sclerosis (principal); J96.90 Respiratory failure, unspecified, unspecified whether with hypoxia or hypercapnia; J18.9 Pneumonia, unspecified organism; I25.10 Atherosclerotic heart disease of native coronary artery without angina pectoris; I25.2 Old myocardial infarction; Z66 Do not resuscitate; Z51.5 Encounter for palliative care; Z79.82 Long term (current) use of aspirin; Z88.5 Allergy status to narcotic agent
CPT/HCPCS: 36415; 71045; 80047; 80053; 85014; 85025; 93005; 93010; 96365; 96366; 96367; 96375; 96376; 99285-25; A9270; G0378; J0456; J0696; J2060; J2270; J7050